=== PATIENT | female | born 1950 | race Caucasian/White ===

== ENCOUNTER 2017-09-30 08:49 | Day surgery (SDC) | payer OTHER, BC ==
[2017-09-27 10:55] VITALS: BMI 37.8
[2017-09-30] MEDS ORDERED: PROPOFOL 20 ML ONE (09:10)
[2017-09-30 11:32] VITALS: TEMP 97.8
[2017-09-30 12:02] VITALS: BP 128/69; PULSE 85
== END 2017-09-30 11:50 | disposition home or self-care (01) ==
LOC: FASU-ENDO 08:49
PROVIDERS: ATTEND Internal Medicine Gastroenterology
PROC: 0DJD8ZZ Inspection of Lower Intestinal Tract, Via Natural or Artificial Opening Endoscopic (ICD-10-PCS; principal; 2017-09-30 10:46)
DX: Z12.11 Encounter for screening for malignant neoplasm of colon (principal); Z86.010 Personal history of colon polyps; K57.30 Diverticulosis of large intestine without perforation or abscess without bleeding